=== PATIENT | female | born 1990 | race Caucasian/White ===

== ENCOUNTER 2019-09-21 09:59 | Inpatient (IN) | payer OTHER ==
[~2019-09-21] VITALS: Ht 162.6 cm; Wt 68.6 kg
[2019-09-28] VITALS (59 sets, daily range): BP systolic 98–142; BP diastolic 62–91; PULSE 62–131; TEMP 97.4–98.3
[2019-09-28] MEDS ORDERED: PROAIR HFA0.09 MG/AC IH (07:03)
[2019-09-28] MEDS ORDERED: PRENATAL (07:03)
[2019-09-28] MEDS ORDERED: ASPIRIN 81M81 MG/TA2 PO (07:03)
--- NOTE | 2019-09-28 07:30 | NUR ---
0730-G3L0 40.[address] Rey's ambulatory to LR6 for scheduled induction of labor. Patient Reports good FM, Denies LOF or VB. Assisted into gown and onto EFM. VSS, see flow record. Assessment complete. 0745-IV to left forearm, blood collected and sent to lab. LR infusing per protocol, see EMAR. Consents reviewed and signed. 0805-SVE /2, unchanged from previous check in office. GABRIELA, repositioned back WL and updated on plan of care. 0808-Pitocin infusing per MD orders and protocl at 2mu/min, see EMAR
[2019-09-28 08:31] LABS: HEMATOCRIT 41.8 % (37.0-47.0); HEMOGLOBIN 14.1 g/dl (12.5-16.0); MEAN CELL VOLUME 95 fl (80.0-100.0); MEAN CORPUSCULAR HEMOGLOBIN 32 pg (27.0-31.0); MEAN CORPUSCULAR HGB CONC 34 g/dl (33.0-37.0); MEAN PLATELET VOLUME 12.4 fl (7.4-10.4); PLATELET COUNT 187 K/mm3 (130-400); RED BLOOD COUNT 4.42 M/mm3 (4.10-5.30); REDCELL DISTRIBUTION WIDTH-CV 13.1 % (11.5-14.5)
[2019-09-28 08:51] LABS: BAND 1 % (0-10); EOSINOPHIL 2 % (0-4); LYMPHOCYTE 23 % (20.0-51.0); NEUTROPHILS 68 % (42.0-75.2)
[2019-09-28 08:52] LABS: PLATELET ESTIMATE NORMAL (NORMAL)
--- NOTE | 2019-09-28 10:23 | NUR ---
1023-Dr. Rey on unit. Reviews FHR monitor. 1025-SVE by /-2, AROM clear fluid. Repositioned back semifowler and updated on plan of care. 1033-Patient requests epidural. DANIELA Conway notified 1040-Man SUAREZ to patient room, patient sitting upright on bedside for epidural placement. 1047-SS administered by DANIELA Conway, patient tolerated well, see anesthesia record. Updated on safety and plan of care.
--- NOTE | 2019-09-28 11:40 | NUR ---
1140-Frank to DD, clear yellow fluid noted. 1145-SVE by this RN, /-2 forebag palpated, sole care provided, repositioned WL with peanut ball.
--- NOTE | 2019-09-28 12:35 | NUR ---
Dr. Rey to bedside, SVE by forebag ruptured by MD, clear fluid, /-2, Repositioned WR with peanut ball.
--- NOTE | 2019-09-28 18:30 | NUR ---
Dr. Rey on the unit. FHR tracing reviewed.
--- NOTE | 2019-09-28 18:31 | NUR ---
Dr. Rey at the bedside. SVE by this RN and MD . No new orders at this time. Plan of care reviewed with pt and at the bedside.
--- NOTE | 2019-09-28 19:15 | NUR ---
1914- SVE by this RN /+1 pushing instructions reviewed. Test pushing done. 1929- Frank removed without complications. 1935- Pushing started. 1937- Spoke with Dr. Rey for an update on pt's status. FHR tracing reviewed. in route to hospital for pending delivery. 1949- Dr. Rey at the bedside. Pt set up for delivery. 2002- of viable male . placed on mom's abdomen. Cords clamped and cut. Care of the given to nursery RN at the bedside. 2012- of placenta. Fundus firm per Dr. Rey. Lochia WNL. Pitocin started at 333ml/hr per order and protocol.
--- NOTE | 2019-09-28 22:15 | NUR ---
Pt up to the bathroom with standby assist and without complications. Pt was not able to void at this time. Sylvia-care done. Assisted pt to wheelchair for transfer to 214. Oriented to room, bed and call light within reach. Plan of care reviewed with pt and at the bedside.
[2019-09-29 03:26] VITALS: BP 119/78; PULSE 91; TEMP 97.5
[2019-09-29 07:57] VITALS: BP 112/64; PULSE 76; TEMP 98.1
[2019-09-29 14:50] VITALS: BP 113/70; PULSE 84; TEMP 97.6
[2019-09-29 21:05] VITALS: BP 117/88; PULSE 71; TEMP 97.2
[2019-09-30] MEDS ORDERED: IBU800 M1 PO (08:12)
[2019-09-30 09:00] VITALS: BP 110/61; PULSE 68; TEMP 98
--- NOTE | 2019-09-30 11:25 | NUR ---
Discharge instructions given, pt verbalizes understanding. No further questions noted. Bands matched and hugs tag removed.
== END 2019-09-30 12:45 | disposition home or self-care (01) | DRG 807 ==
LOC: OB 09-28 06:47 → LDR 09-28 07:25 → OB 09-28 07:25
PROVIDERS: ADMIT Student in an Organized Health Care Education/Training Program
PROC: 10E0XZZ Delivery of Products of Conception, External Approach (ICD-10-PCS; principal; 2019-09-28)
PROC: 10907ZC Drainage of Amniotic Fluid, Therapeutic from Products of Conception, Via Natural or Artificial Opening (ICD-10-PCS; 2019-09-28)
PROC: 0HQ9XZZ Repair Perineum Skin, External Approach (ICD-10-PCS; 2019-09-28)
DX: O99.52 Diseases of the respiratory system complicating childbirth (principal); Z37.0 Single live birth; J45.909 Unspecified asthma, uncomplicated; O70.0 First degree perineal laceration during delivery; Z3A.40 40 weeks gestation of pregnancy
CPT/HCPCS: J2590; J2795; J7120

== ENCOUNTER 2022-04-21 15:53 | Inpatient (IN) | payer OTHER ==
[~2022-04-21] VITALS: Ht 160 cm; Wt 70.5 kg
[~2022-04-21 15:53] MED LIST: ASPIRIN 81M81 MG/TA2 PO; IBU800 M1 PO; PRENATAL; PROAIR HFA0.09 MG/AC IH
[2022-04-23] VITALS (46 sets, daily range): BP systolic 89–133; BP diastolic 54–82; PULSE 77–106; TEMP 97.4–97.9
--- NOTE | 2022-04-23 06:32 | NUR ---
PT AMBULATORY TO UNIT FOR INDUCTION OF LABOR. PT DENIES CONTRACTIONS, DENIES LEAKING OF FLUID, DENIES BLEEDING, AND DENIES DECREASED MOVEMENT. EFM AND TOCO APPLIED AND VITALS SIGNS OBTAINED. VITALS WNL AND CAT 1 STRIP NOTED. CONSENT FORMS SIGNED AND ALL QUESTIONS ANSWERED. WILL CONTINUE WITH PLAN OF CARE.
[2022-04-23 07:53] LABS: HEMATOCRIT 35.5 % (37.0-47.0); HEMOGLOBIN 12.2 g/dl (12.5-16.0); MEAN CELL VOLUME 92 fl (80.0-100.0); MEAN CORPUSCULAR HEMOGLOBIN 32 pg (27-31); MEAN CORPUSCULAR HGB CONC 34 g/dl (33.0-37.0); MEAN PLATELET VOLUME 11.1 fl (7.4-10.4); PLATELET COUNT 238 K/mm3 (130-400); RED BLOOD COUNT 3.85 M/mm3 (4.10-5.30); REDCELL DISTRIBUTION WIDTH-CV 13.2 % (11.5-14.5)
[2022-04-23 08:34] LABS: BAND 4 % (0-10); EOSINOPHIL 4 % (0-4); LYMPHOCYTE 13 % (20.0-51.0); NEUTROPHILS 74 % (42.0-75.2)
[2022-04-23 08:36] LABS: HYPOCHROMIA 2+; PLATELET ESTIMATE NORMAL (NORMAL)
--- NOTE | 2022-04-23 10:24 | NUR ---
DR. CARDOZA AT BEDSIDE. SVE /-2 PER MD. AROM AT 1025. MODERATE AMOUNT OF CLEAR FLUID NOTED. CAT 1 STRIP AT THIS TIME. WILL CONTINUE WITH PLAN OF CARE.
--- NOTE | 2022-04-23 11:36 | NUR ---
PT SITTING UPRIGHT ON THE EDGE OF THE BED FOR EPIDURAL PLACEMENT. MUSIC MINISTER AT BEDSIDE. EFM AND TOCO TRACING INTERMITTENLY DUE TO MATERNAL POSITIONING. PLUSE OX APPLIED TO TRACE MATERNAL HEART RATE. BLOOD PRESSURE CYCLING Q 5MINS. SINGLE SHOT DOSE AT 1136. PT TOLERATED PROCEDURE WELL. WILL CONTUINUE WITH PLAN OF CARE.
--- NOTE | 2022-04-23 16:23 | NUR ---
1615-DR. VITAL AT BEDSIDE SPONTANEOUS VAGNIAL DELIVERY AT 1623 OF A VIABLE FEMALE . PLACED ON MOTHER'S ABDOMEN AND CARE OF INFANT TRANSFERRED TO NURSERY RN. SPONTANEOUS DELIVERY OF PLACENTA AT 1630. GRAPE SIZE POSTERIOR VAGINAL WALL CYST NOTED PER DR. CARDOZA. PT AGREED TO EXCISION OF CYST WHILE NUMB AND SUTURED CLOSED. PT EDUCATED ON AFTER CARE OF SUTURES. CYST CONTAINED A SMALL BLOOD CLOT. CLOT AND CYST WALL COLLECTED AND SENT TO PATHOLOGY. FUNDUS FIRM AND PP BLEEDING WNL. WILL CONTINUE WITH PLAN OF CARE.
[2022-04-24 00:30] VITALS: BP 118/62; PULSE 84; TEMP 98
[2022-04-24 04:20] VITALS: BP 90/63; PULSE 84; TEMP 97.6
[2022-04-24 08:31] VITALS: BP 97/68; PULSE 68; TEMP 97.1
[2022-04-24] MEDS ORDERED: IBU800 M1 PO (08:56)
--- NOTE | 2022-04-24 09:12 | NUR ---
Initial visit attempt; Family resting, Hat Designer left card offering congratulations and God's blessings for the of their son and information regarding the availability of Spiritual Care at our hospital.
[2022-04-24 15:46] VITALS: BP 114/68; PULSE 78; TEMP 98.1
== END 2022-04-24 17:47 | disposition home or self-care (01) | DRG 768 ==
LOC: LDR 04-23 06:17 → OB 04-23 06:17
PROVIDERS: ADMIT Student in an Organized Health Care Education/Training Program
PROC: 10E0XZZ Delivery of Products of Conception, External Approach (ICD-10-PCS; principal; 2022-04-23)
PROC: 0UBG0ZZ Excision of Vagina, Open Approach (ICD-10-PCS; 2022-04-23)
PROC: 10907ZC Drainage of Amniotic Fluid, Therapeutic from Products of Conception, Via Natural or Artificial Opening (ICD-10-PCS; 2022-04-23)
PROC: 3E033VJ Introduction of Other Hormone into Peripheral Vein, Percutaneous Approach (ICD-10-PCS; 2022-04-23)
DX: O99.892 Other specified diseases and conditions complicating childbirth (principal); Z37.0 Single live birth; N89.8 Other specified noninflammatory disorders of vagina; Z3A.39 39 weeks gestation of pregnancy; O76 Abnormality in fetal heart rate and rhythm complicating labor and delivery; Z23 Encounter for immunization
CPT/HCPCS: J2590; J2795; J7120